=== PATIENT | female | born 1975 | race Caucasian/White ===

== ENCOUNTER 2017-02-21 18:42 | Emergency (ER) | payer OTHER, SELFPAY ==
[2017-02-21 20:14] VITALS: BP 112/59; PULSE 73; RESP 20; TEMP 37; O2SAT 98; BMI 42.9
--- NOTE | 2017-02-21 20:40 | HMH.EDUTC ---
[facility] [place] Disposition Clinical Impression: Viral upper respiratory illness Disposition: Home, Self-Care Condition on Discharge: Good Instructions: DI for Viral Upper Respiratory Infection -- Adult Additional Instructions: * Monitor Temp. Tylenol and/or Ibuprofen as needed. ER if fever is no less than 101 despite alternating Tylenol and Ibuprofen * Encourage fluids, water, Gatorade, powerade, pedialyte if infant/toddler/or child * Warm salt water gargles for throat irritation *Warm fluids *Sore throat lozenges *Sleep elevated *humidifier or vaporizer Lots of rest Increase fluids, water, Gatorade, powerade *Your throat swab was sent to lab for culture. Those results area typically sent to your primary care physician. Be sure to follow up in 2-3 days if no improvement so they can review those results and treat if necessary If you dont have primary care I recommend you get one, but in the mean time you will have to return to a walk in clinic Follow up IMMEDIATELY for new or worsening of symptoms OR no noticeable improvement over the next 48-72 hours. 911 immediately for any life threatening symptoms such as chest pain or difficulty breathing Time of Disposition: 20:49 Medical Decision Making Vital Signs: 02/21/17 20:14 Temperature 98.6 F Temperature Source Temporal Artery Scan Pulse Rate [Right Radial] 73 Respiratory Rate 20 Blood Pressure [Right Arm] 112/59 Blood Pressure Mean [Right Arm] 76 Blood Pressure Source [Right Arm] Automatic Cuff Blood Pressure Position [Right Arm] Sitting 02 Sat by Pulse Oximetry 98 Oxygen Delivery Method Room Air - Bladimir Inquiry Pt receiving controlled substance: No Bladimir was queried for this patient: No [facility] [place] HPI - General Stated complaint: Aches, Cough, Congestion Mode of Arrival: Ambulatory Source of Information: Patient Limitations: No Limitations Description of Symptoms (Recalled from Triage Doc. by RN): HEADACHE, COUGH, AND CONGESTION HEENT Symptoms (Recalled from RN notes): Yes (HEADACHE, CONGESTION) Resp Symptoms (Recalled from RN notes): Yes (COUGH) Skin Symptoms (Recalled from RN notes): No MS Symptoms (Recalled from RN notes): No Functional Status (Recalled from RN notes): NA - History of Present Illness Provider Complaint: Patient state that she has been having flu like symptoms States that she was worried that she may have the flu Onset (ago): day(s) (1) Severity: mild Severity scale (1-10): 3 Relieving factors: none Exacerbating factors: none Associated symptoms: fever/chills Treatments prior to arrival: none, NSAID, cold therapy - Related Data Allergies Allergy/AdvReac Type Severity Reaction Status Date / Time No Known Allergies Allergy Verified 02/21/17 20:18 - Worker's Comp Is this a Worker's Comp case?: No Is this an [facility] Worker's Comp?: No [facility] History Medical History: Denies:: Cancer, Diabetes Mellitus Type 1, Diabetes Mellitus Type 2, MRSA Amputation: No Fractures: No - *Social History Smoking Status: Never smoker Alcohol Intake: never - Psychiatric History Expresses thoughts of harming self/others: None Suicide Plan Description: No Plan - Constitutional Reports chills, Reports fever(s) - Respiratory Reports cough Physical Exam - General General appearance: alert, in no apparent distress - Expanded ENT Exam Comment: Throat red, irritated - Respiratory Respiratory exam: Present: normal lung sounds bilaterally. Absent: respiratory distress - Cardiovascular Cardiovascular exam: Present: regular rate, normal rhythm. Absent: JVD - Neurological Exam Neurological exam: Present: alert, oriented X3 - Skin Skin exam: Present: warm, dry, intact, normal color
--- NOTE | 2017-02-21 20:44 | ED_ITS ---
[facility] [place] Clinical Impression: Viral upper respiratory illness Disposition: Home, Self-Care Condition on Discharge: Good Instructions: DI for Viral Upper Respiratory Infection -- Adult Additional Instructions: * Monitor Temp. Tylenol and/or Ibuprofen as needed. ER if fever is no less than 101 despite alternating Tylenol and Ibuprofen * Encourage fluids, water, Gatorade, powerade, pedialyte if infant/toddler/or child * Warm salt water gargles for throat irritation *Warm fluids *Sore throat lozenges *Sleep elevated *humidifier or vaporizer Lots of rest Increase fluids, water, Gatorade, powerade *Your throat swab was sent to lab for culture. Those results area typically sent to your primary care physician. Be sure to follow up in 2-3 days if no improvement so they can review those results and treat if necessary If you don? t have primary care I recommend you get one, but in the mean time you will have to return to a walk in clinic Follow up IMMEDIATELY for new or worsening of symptoms OR no noticeable improvement over the next 48-72 hours. 911 immediately for any life threatening symptoms such as chest pain or difficulty breathing Time of Disposition: 20:49 Medical Decision Making Vital Signs: 02/21/17 20:14 Temperature 98.6 F Temperature Source Temporal Artery Scan Pulse Rate [Right Radial] 73 Respiratory Rate 20 Blood Pressure [Right Arm] 112/59 Blood Pressure Mean [Right Arm] 76 Blood Pressure Source [Right Arm] Automatic Cuff Blood Pressure Position [Right Arm] Sitting 02 Sat by Pulse Oximetry 98 Oxygen Delivery Method Room Air - Bladimir Inquiry Pt receiving controlled substance: No Bladimir was queried for this patient: No [facility] [place] - General Stated complaint: Aches, Cough, Congestion Mode of Arrival: Ambulatory Source of Information: Patient Limitations: No Limitations Description of Symptoms (Recalled from Triage Doc. by RN): HEADACHE, COUGH, AND CONGESTION HEENT Symptoms (Recalled from RN notes): Yes (HEADACHE, CONGESTION) Resp Symptoms (Recalled from RN notes): Yes (COUGH) Skin Symptoms (Recalled from RN notes): No MS Symptoms (Recalled from RN notes): No Functional Status (Recalled from RN notes): NA - History of Present Illness Provider Complaint: Patient state that she has been having flu like symptoms States that she was worried that she may have the flu Onset (ago): day(s) (1) Severity: mild Severity scale (1-10): 3 Relieving factors: none Exacerbating factors: none Associated symptoms: fever/chills Treatments prior to arrival: none, NSAID, cold therapy - Related Data Allergies Allergy/AdvReac Type Severity Reaction Status Date / Time No Known Allergies Allergy Verified 02/21/17 20:18 - Worker's Comp Is this a Worker's Comp case?: No Is this an [facility] Worker's Comp?: No [facility] History Medical History: Denies:: Cancer, Diabetes Mellitus Type 1, Diabetes Mellitus Type 2, MRSA Amputation: No Fractures: No - *Social History Smoking Status: Never smoker Alcohol Intake: never - Psychiatric History Expresses thoughts of harming self/others: None Suicide Plan Description: No Plan - Constitutional Reports chills, Reports fever(s) - Respiratory Reports cough Physical Exam - General General appearance: alert, in no apparent distress - Expanded ENT Exam Comment: Throat red
[2017-02-21 21:25] LABS: UTC Influenza A Antigen Negative (Negative); UTC Influenza B Antigen Negative (Negative)
== END 2017-02-21 21:09 | disposition home or self-care (01) ==
PROVIDERS: Emergency Provider Nurse Practitioner; Family Provider Pediatrics
DX: J06.9 Acute upper respiratory infection, unspecified (principal)
CPT/HCPCS: 87276; 87804; 99201

== ENCOUNTER 2017-02-28 10:32 | Emergency (ER) | payer OTHER, SELFPAY ==
[2017-02-28 10:46] VITALS: BP 148/64; PULSE 78; RESP 20; TEMP 36.7; O2SAT 96; BMI 42.9
--- NOTE | 2017-02-28 10:59 | HMH.EDUTC ---
[facility] [place] Disposition Clinical Impression: Upper respiratory infection Qualifiers: URI type: unspecified URI Qualified Code(s): J06.9 - Acute upper respiratory infection, unspecified Sinusitis Qualifiers: Sinusitis location: other Chronicity: unspecified Qualified Code(s): J32.9 - Chronic sinusitis, unspecified Disposition: Home, Self-Care Condition on Discharge: Good Instructions: Sinusitis, DI for Sinusitis Additional Instructions: Stop taking Augmentin and began taking Biaxin as prescribed Return if needed Use vaporizer/humidifier to help with breathing and cough Return if needed Follow up with family doctor if needed Prescriptions: Clarithromycin [Biaxin] 500 mg PO Q12H #20 tablet Promethazine/Dextromethorphan [Promethazine-Dm Syrup] 5 ml PO Q4H PRN #200 syrup PRN Reason: Cough Referrals: Robin Roberson [Primary Care Provider] - Time of Disposition: 11:18 Medical Decision Making Vital Signs: 02/28/17 10:46 Temperature 98.1 F Temperature Source Temporal Artery Scan Pulse Rate [Right] 78 Respiratory Rate 20 Blood Pressure [Right Arm] 148/64 Blood Pressure Mean [Right Arm] 92 Blood Pressure Source [Right Arm] Automatic Cuff Blood Pressure Position [Right Arm] Sitting 02 Sat by Pulse Oximetry 96 Oxygen Delivery Method Room Air - Bladimir Inquiry Pt receiving controlled substance: No Bladimir was queried for this patient: No [facility] [place] HPI - General Stated complaint: congested,headache,earache Mode of Arrival: Ambulatory Source of Information: Patient Limitations: No Limitations Description of Symptoms (Recalled from Triage Doc. by RN): COUGH, CONGESTION EAR ACHE HEENT Symptoms (Recalled from RN notes): Yes Resp Symptoms (Recalled from RN notes): No Skin Symptoms (Recalled from RN notes): No MS Symptoms (Recalled from RN notes): No Functional Status (Recalled from RN notes): N - History of Present Illness Provider Complaint: Patient state that she was recently put on Augmentin for sinus infection, State that she has been taking it but it hasn't been helping She is still having pain and pressure feeling under left eye and feeling like her ears are full. State that she is tender to touch and has pain and pressure with palpation - Related Data Home Medications Medication Instructions Recorded Confirmed Lisinopril [Prinivil 10mg Tablet] 12.5 mg PO DAILY 02/28/17 02/28/17 Metoprolol Tartrate [Lopressor 50 mg PO BID 02/28/17 02/28/17 50mg tablet] Previous Rx's Medication Instructions Recorded Clarithromycin [Biaxin] 500 mg PO Q12H #20 tab 02/28/17 Promethazine/Dextromethorphan 5 ml PO Q4H PRN #200 syrup 02/28/17 [Promethazine-Dm Syrup] Allergies Allergy/AdvReac Type Severity Reaction Status Date / Time No Known Allergies Allergy Verified 02/21/17 20:18 - Worker's Comp Is this a Worker's Comp case?: No [facility] History I have reviewed the patient's past medical history: Yes Medical History: Denies:: Cancer, Diabetes Mellitus Type 1, Diabetes Mellitus Type 2, MRSA Amputation: No Fractures: No - *Social History Smoking Status: Never smoker Alcohol Intake: never - Psychiatric History Expresses thoughts of harming self/others: None Suicide Plan Description: No Plan ROS Obtained: Yes All systems reviewed & no additional complaints Physical Exam - General General appearance: alert, in no apparent distress - ENT ENT exam: Present: other (Throat red, irritated drainage noted) - Expanded ENT Exam Nose exam: Present: sinus tenderness, other (Tenderness noted with palpation under eyes ) Nasal speculum exam: Bilateral: purulent discharge - Respiratory Respiratory exam: Present: normal lung sounds bilaterally. Absent: respiratory distress - Cardiovascular Cardiovascular exam: Present: regular rate, normal rhythm. Absent: JVD - Neurological Exam Neurological exam: Present: alert, oriented X3
--- NOTE | 2017-02-28 11:05 | ED_ITS ---
[facility] [place] Disposition Clinical Impression: Upper respiratory infection Qualifiers: URI type: unspecified URI Qualified Code(s): J06.9 - Acute upper respiratory infection, unspecified Sinusitis Qualifiers: Sinusitis location: other Chronicity: unspecified Qualified Code(s): J32.9 - Chronic sinusitis, unspecified Disposition: Home, Self-Care Condition on Discharge: Good Instructions: Sinusitis, DI for Sinusitis Additional Instructions: Stop taking Augmentin and began taking Biaxin as prescribed Return if needed Use vaporizer/humidifier to help with breathing and cough Return if needed Follow up with family doctor if needed Prescriptions: Clarithromycin [Biaxin] 500 mg PO Q12H #20 tablet Promethazine/Dextromethorphan [Promethazine-Dm Syrup] 5 ml PO Q4H PRN #200 syrup PRN Reason: Cough Referrals: Robin Roberson [Primary Care Provider] - Time of Disposition: 11:18 Medical Decision Making Vital Signs: 02/28/17 10:46 Temperature 98.1 F Temperature Source Temporal Artery Scan Pulse Rate [Right] 78 Respiratory Rate 20 Blood Pressure [Right Arm] 148/64 Blood Pressure Mean [Right Arm] 92 Blood Pressure Source [Right Arm] Automatic Cuff Blood Pressure Position [Right Arm] Sitting 02 Sat by Pulse Oximetry 96 Oxygen Delivery Method Room Air - Bladimir Inquiry Pt receiving controlled substance: No Bladimir was queried for this patient: No [facility] [place] HPI - General Stated complaint: congested,headache,earache Mode of Arrival: Ambulatory Source of Information: Patient Limitations: No Limitations Description of Symptoms (Recalled from Triage Doc. by RN): COUGH, CONGESTION EAR ACHE HEENT Symptoms (Recalled from RN notes): Yes Resp Symptoms (Recalled from RN notes): No Skin Symptoms (Recalled from RN notes): No MS Symptoms (Recalled from RN notes): No Functional Status (Recalled from RN notes): N - History of Present Illness Provider Complaint: Patient state that she was recently put on Augmentin for sinus infection, State that she has been taking it but it hasn't been helping She is still having pain and pressure feeling under left eye and feeling like her ears are full. State that she is tender to touch and has pain and pressure with palpation - Related Data Home Medications Medication Instructions Recorded Confirmed Lisinopril [Prinivil 10mg Tablet] 12.5 mg PO DAILY 02/28/17 02/28/17 Metoprolol Tartrate [Lopressor 50 mg PO BID 02/28/17 02/28/17 50mg tablet] Previous Rx's Medication Instructions Recorded Clarithromycin [Biaxin] 500 mg PO Q12H #20 tab 02/28/17 Promethazine/Dextromethorphan 5 ml PO Q4H PRN #200 syrup 02/28/17 [Promethazine-Dm Syrup] Allergies Allergy/AdvReac Type Severity Reaction Status Date / Time No Known Allergies Allergy Verified 02/21/17 20:18 - Worker's Comp Is this a Worker's Comp case?: No [facility] History I have reviewed the patient's past medical history: Yes Medical History: Denies:: Cancer, Diabetes Mellitus Type 1, Diabetes Mellitus Type 2, MRSA Amputation: No Fractures: No - *Social History Smoking Status: Never smoker Alcohol Intake: never - Psychiatric History Expresses thoughts of harming self/others: None Suicide Plan Description: No Plan ROS Obtained: Yes All systems reviewed & no additional complaints
== END 2017-02-28 11:30 | disposition home or self-care (01) ==
PROVIDERS: Emergency Provider Nurse Practitioner; Family Provider Pediatrics; PCP Pediatrics
DX: J06.9 Acute upper respiratory infection, unspecified (principal); J32.9 Chronic sinusitis, unspecified; I10 Essential (primary) hypertension
CPT/HCPCS: 96372; 99202

== ENCOUNTER 2017-05-05 09:28 | Emergency (ER) | payer OTHER, SELFPAY ==
[2017-05-05 09:49] VITALS: BP 151/83; PULSE 100; RESP 20; TEMP 37.1; O2SAT 97; BMI 42.9
[2017-05-05 10:02] LABS: UTC Influenza A Antigen Negative (Negative); UTC Influenza B Antigen Negative (Negative); UTC Strep Screen (Rapid) Negative (Negative)
--- NOTE | 2017-05-05 10:06 | HMH.EDUTC ---
[facility] [place] Disposition Clinical Impression: Acute bronchitis Qualifiers: Bronchitis organism: other organism Qualified Code(s): J20.8 - Acute bronchitis due to other specified organisms Disposition: Home, Self-Care Condition on Discharge: Good Instructions: DI for Acute Bronchitis Additional Instructions: * start antibiotic today. Be sure to complete entire prescription even if feeling better. * Monitor Temp. Tylenol every 4 hours as needed no more then 5 times a day or 4000mg in 24 hours and/or ibuprofen every 6 hours as needed no more then 3200mg in 24 hours (as long as your primary care doctor has told you that it is ok to take both) for fever/aches/pain. ER if fever no less than 101 despite tylenol and ibuprofen * humidifier/vaporizer/hot steamy shower * Inhaler every 4-6 hours as needed like we discussed. Should help open airways and improve cough, wheezing, shortness of breath. * Mucinex during the day for your cough and cough suppressant only at night. Be sure to drink lots of water. Insurance may not cover a prescription of mucinex. Might be cheaper to get 400mg tablets and take 2 tablets morning, midday and evening all with lots of water. * Tessalon Perles will not cause drowsiness but use at bedtime to help stop cough so that you can get some rest * Start steroid today. Helps with inflammation therefore, cough and wheezing. Follow directions on package. Rvwd side effects. Pt reports they have taken them before. Prescriptions: Albuterol Sulfate [Albuterol HFA Inhaler] 1 - 2 puffs IH Q4-6H PRN #1 inh PRN Reason: Shortness Of Breath Or Wheezing Benzonatate [Benzonatate 200mg Cap] 200 mg PO HS PRN #21 cap PRN Reason: Cough predniSONE [Deltasone 10mg tablet] 10 mg PO BID #10 tab Referrals: Robin Roberson [Primary Care Provider] - (Follow up IMMEDIATELY for new or worsening symptoms OR no noticeable improvement over the next 48-72 hours. 911 for difficulty breathing.) Time of Disposition: 10:44 Medical Decision Making - Bladimir Inquiry Pt receiving controlled substance: No Vital Signs: 05/05/17 09:49 Temperature 98.8 F Temperature Source Temporal Artery Scan Pulse Rate [Left Radial] 100 H Respiratory Rate 20 Blood Pressure [Right Arm] 151/83 Blood Pressure Mean [Right Arm] 105 Blood Pressure Source [Right Arm] Automatic Cuff Blood Pressure Position [Right Arm] Sitting 02 Sat by Pulse Oximetry 97 Oxygen Delivery Method Room Air - Lab Data Lab results reviewed: Yes: I reviewed the patient's lab results. Lab Results 05/05/17 09:57: Influenza Type A Ag Negative, Influenza Type B Ag Negative, Strep Scn Rapid Clinic Negative Orders (Tests/Meds): ORDERS Category Date Time Status Strep Screen Confirmation Stat Micro 05/05/17 09:57 Received - Radiology Data #1 Image(s): Chest Image Reviewed: Yes I have reviewed radiologist's interpretation, Yes I reviewed the patient's radiology image w/the ED provider Suzanna w/ Dr. Prado, possible RLL pneumonia Negative CXR per radiologist [facility] [place] HPI - General Stated complaint: Cough Congestion Time Seen by Provider: 05/05/17 09:45 Mode of Arrival: Family Vehicle Source of Information: Patient Limitations: No Limitations Description of Symptoms (Recalled from Triage Doc. by RN): PT C/O COUGH,TIGHT CHEST WITH BURNING WHEN COUGHING,CONGESTION, HEAD PAIN, LOW GRADE FEVER, BODY ACHES. HEENT Symptoms (Recalled from RN notes): Yes (HEAD PAIN,CONGESTION) Resp Symptoms (Recalled from RN notes): Yes (COUGH,BURNING, CHEST TIGHTNESS) Skin Symptoms (Recalled from RN notes): No MS Symptoms (Recalled from RN notes): No Functional Status (Recalled from RN notes): NA - History of Present Illness Provider Complaint: c/o productive cough, chest tightness, chest burning, headache, bodyaches, chills, low grade fever. Started w/ a head cold approx 5-6 days ago. Feels like it moved into her chest 2-3 days ago. Mucinex, advil and benadryl helping but wears off quickly . N
--- NOTE | 2017-05-05 10:07 | XR_ITS ---
XR chest 2V INDICATION: Productive cough COMPARISON: PA and lateral chest 12/13/2016 FINDINGS: The cardiovascular structures are unremarkable. No mediastinal shift or hilar mass is evident. The lungs are well expanded and clear bilaterally. The costophrenic sulci are sharp. No significant bony anomalies are apparent. IMPRESSION: Negative chest.
--- NOTE | 2017-05-05 10:11 | ED_ITS ---
[facility] [place] Clinical Impression: Acute bronchitis Qualifiers: Bronchitis organism: other organism Qualified Code(s): J20.8 - Acute bronchitis due to other specified organisms Disposition: Home, Self-Care Condition on Discharge: Good Instructions: DI for Acute Bronchitis Additional Instructions: * start antibiotic today. Be sure to complete entire prescription even if feeling better. * Monitor Temp. Tylenol every 4 hours as needed no more then 5 times a day or 4000mg in 24 hours and/or ibuprofen every 6 hours as needed no more then 3200mg in 24 hours (as long as your primary care doctor has told you that it is ok to take both) for fever/aches/pain. ER if fever no less than 101 despite tylenol and ibuprofen * humidifier/vaporizer/hot steamy shower * Inhaler every 4-6 hours as needed like we discussed. Should help open airways and improve cough, wheezing, shortness of breath. * Mucinex during the day for your cough and cough suppressant only at night. Be sure to drink lots of water. Insurance may not cover a prescription of mucinex. Might be cheaper to get 400mg tablets and take 2 tablets morning, midday and evening all with lots of water. * Tessalon Perles will not cause drowsiness but use at bedtime to help stop cough so that you can get some rest * Start steroid today. Helps with inflammation therefore, cough and wheezing. Follow directions on package. Rvwd side effects. Pt reports they have taken them before. Prescriptions: Albuterol Sulfate [Albuterol HFA Inhaler] 1 - 2 puffs IH Q4-6H PRN #1 inh PRN Reason: Shortness Of Breath Or Wheezing Benzonatate [Benzonatate 200mg Cap] 200 mg PO HS PRN #21 cap PRN Reason: Cough predniSONE [Deltasone 10mg tablet] 10 mg PO BID #10 tab Referrals: Robin Roberson [Primary Care Provider] - (Follow up IMMEDIATELY for new or worsening symptoms OR no noticeable improvement over the next 48-72 hours. 911 for difficulty breathing.) Time of Disposition: 10:44 Medical Decision Making - Bladimir Inquiry Pt receiving controlled substance: No Vital Signs: 05/05/17 09:49 Temperature 98.8 F Temperature Source Temporal Artery Scan Pulse Rate [Left Radial] 100 H Respiratory Rate 20 Blood Pressure [Right Arm] 151/83 Blood Pressure Mean [Right Arm] 105 Blood Pressure Source [Right Arm] Automatic Cuff Blood Pressure Position [Right Arm] Sitting 02 Sat by Pulse Oximetry 97 Oxygen Delivery Method Room Air - Lab Data Lab results reviewed: Yes: I reviewed the patient's lab results. Lab Results 05/05/17 09:57: Influenza Type A Ag Negative, Influenza Type B Ag Negative, Strep Scn Rapid Clinic Negative Orders (Tests/Meds): ORDERS Category Date Time Status Strep Screen Confirmation Stat Micro 05/05/17 09:57 Received - Radiology Data #1 Image(s): Chest Image Reviewed: Yes I have reviewed radiologist's interpretation, Yes I reviewed the patient's radiology image w/the ED provider Suzanna w/ Dr. Prdao, possible RLL pneumonia Negative CXR per radiologist [facility] [place] - General Stated complaint: Cough Congestion Time Seen by Provider: 05/05/17 09:45 Mode of Arrival: Family Vehicle Source of Information: Patient Limitations: No Limitations Description of Symptoms (Recalled from Triage Doc. by RN): PT C/O COUGH,TIGHT CHEST WITH BURNING WHEN COUGHING,CONGESTION, HEAD PAIN, LOW GRADE FEVER, BODY ACHES. HEENT Symptoms (Recalled from RN notes): Yes (HEAD PAIN,CONGESTION)
[2017-05-05 10:52] VITALS: BP 148/79; PULSE 83; RESP 18; TEMP 37; O2SAT 98
== END 2017-05-05 10:54 | disposition home or self-care (01) ==
PROVIDERS: Emergency Provider Nurse Practitioner Family; Family Provider Pediatrics; PCP Pediatrics
DX: J20.8 Acute bronchitis due to other specified organisms (principal); I10 Essential (primary) hypertension; F41.9 Anxiety disorder, unspecified
CPT/HCPCS: 71046; 87804; 87880; 99202

== ENCOUNTER → 2017-10-31 10:04 | Outpatient (CLI) | payer OTHER, SELFPAY ==
--- NOTE | 2017-10-31 10:06 | XR_ITS ---
XR foot wt bearing LT 3V HISTORY: ITS.REASON: Foot Pain ORDERING PHYSICIAN: Cristina Noel DPM PATIENT AGE: 42 years COMPARISON: None FINDINGS: No fracture or dislocation. No lytic or blastic change. There is normal mineralization.. The joint spaces are well-preserved. No significant degenerative/arthritic changes. No erosive changes evident. There are postsurgical changes with 2 small screws in the region of the insular aspect of the navicular bone. There is a small calcaneal spur. There is normal alignment. IMPRESSION: No acute finding. Postsurgical changes of the navicular
--- NOTE | 2017-10-31 10:06 | XR_ITS ---
XR foot wt bearing RT 3V HISTORY: ITS.REASON: pain ORDERING PHYSICIAN: Cristina Noel DPM PATIENT AGE: 42 years COMPARISON: 03/27/2014 FINDINGS: There remains hypertrophic change along the medial aspect of the navicular similar to the previous exam which could be due to an old fracture. No acute fracture or dislocation. Normal alignment. IMPRESSION: Overall no change hypertrophic change of the medial aspect of the navicular
== END ==
PROVIDERS: PCP Pediatrics; Visit Provider Podiatrist
DX: M79.673 Pain in unspecified foot (principal)
CPT/HCPCS: 73630

== ENCOUNTER → 2017-12-12 09:45 | Outpatient (POV) | payer OTHER, SELFPAY | PROVIDERS: Family Provider Pediatrics; PCP Pediatrics; Visit Provider Dermatology | DX: Z00.00 Encounter for general adult medical examination without abnormal findings (principal) ==

== ENCOUNTER → 2019-03-12 10:40 | Outpatient (POV) | payer OTHER, SELFPAY | PROVIDERS: Visit Provider Dermatology | DX: Z00.00 Encounter for general adult medical examination without abnormal findings (principal) ==

== ENCOUNTER → 2019-04-11 08:21 | Outpatient (CLI) | payer OTHER, SELFPAY ==
--- NOTE | 2019-04-11 08:23 | MM_ITS ---
PROCEDURE: MM DIG SCREENING MAMM BI W/CAD CLINICAL INDICATION: SCREENING COMPARISON: No exams were available for comparison TECHNIQUE: Standard CC and MLO images and 3D Tomosynthesis was obtained. R2 CAD reviewed. FINDINGS: The breasts are of average density. There are 3 probably benign clustered microcalcifications in the deep left breast just superior to the nipple line. Six month follow-up exam is recommended. Benign appearing calcifications are seen otherwise in both breast. There is no discrete mass or suspicious clustered microcalcification to suggest malignancy. IMPRESSION: BI-RAD Category: 3 Probably Benign Finding Short Term Follow-up FOLLOW-UP: 6M 6Month Follow-up (A letter has been sent to the patient regarding results of the study.) Dictated by: Keenan Young 04/11/2019 18:26 Electronically signed by Keenan Young in [facility] 04/11/2019 18:26
== END ==
PROVIDERS: PCP Nurse Practitioner Family; Visit Provider Nurse Practitioner Family
DX: Z12.31 Encounter for screening mammogram for malignant neoplasm of breast (principal)
CPT/HCPCS: 77063; 77067

== ENCOUNTER → 2019-05-27 09:57 | Outpatient (CLI) | payer OTHER, SELFPAY ==
[2019-05-27 10:25] LABS: Basophils # 0.1 K/mm3 (0-0.2); Basophils % 0.6 % (0.1-2.0); Eosinophils # 0.2 K/mm3 (0.0-0.4); Eosinophils % 2.4 % (0.1-12.0); Hemoglobin 12.7 g/dL (12.2-16.2); Lymphocytes # 3.4 K/mm3 (0.7-4.5); Lymphocytes % 32.8 % (10-50); Mean Corpuscular HGB Conc 31.7 g/dL (31.8-35.4); Mean Corpuscular Hemoglobin 25.1 pg (27.0-31.2); Mean Platelet Volume 7.3 fl (7.4-10.4); Monocytes # 0.5 K/mm3 (0.1-1.0); Monocytes % 4.4 % (1.7-9.3); Neutrophils # 6.2 K/mm3 (1.8-7.8); Neutrophils % 59.9 % (37.0-80.0); Platelet Count 344 K/mm3 (142-424); Red Blood Count 5.06 M/mm3 (4.20-5.40); Red Cell Distribution Width 14.8 % (11.5-17.5); White Blood Count 10.3 K/mm3 (4.8-10.8)
[2019-05-27 11:18] LABS: Chloride 100 mmol/L (98-107); Potassium 4.5 mmoL/L (3.5-5.1); Sodium 137 mmol/L (136-145)
[2019-05-27 11:20] LABS: Alanine Aminotransferase 23 U/L (12-78); Anion Gap 17.5 mEq/L (5-15); Aspartate Amino Transferase 25 U/L (14-36); Blood Urea Nitrogen 9 mg/dl (7-17); Carbon Dioxide 24 mmol/L (22.0-30.0); Estimated Glomerular Filt Rate 134 ml/min (>60); GFR (African American) 162 ML/MIN (>60)
[2019-05-27 11:21] LABS: Albumin Level 4.4 g/dl (3.5-5.0); Albumin/Globulin Ratio 1.5 (1.1-1.8); Alkaline Phosphatase 79 U/L (38-126); Bilirubin,Total 0.4 mg/dl (0.2-1.3); Calcium 9.6 mg/dl (8.4-10.2); Cholesterol 248 mg/dl (140-200); Globulin 2.9 g/dL (1.3-3.2); Glucose 154 mg/dl (74-100); HDL Cholesterol 50 mg/dl (40-60); Total Protein,Serum 7.3 g/dl (6.3-8.2); Triglycerides 204 mg/dl (30-150); VLDL Cholesterol 41 mg/dL (0-40)
[2019-05-27 11:32] LABS: Direct LDL Cholesterol 183.17 mg/dL (100-129)
[2019-05-27 11:51] LABS: Thyroid Stimulating Hormone 1.81 uIU/mL (0.465-4.68)
[2019-05-27 14:25] LABS: Hemoglobin A1C 6.6 % (4.0-6.0)
[2019-05-28 14:15] LABS: Vitamin B12 272 pg/mL (232-1245)
== END ==
PROVIDERS: Visit Provider Nurse Practitioner Family
DX: Z00.00 Encounter for general adult medical examination without abnormal findings (principal); I10 Essential (primary) hypertension; E78.5 Hyperlipidemia, unspecified; R73.9 Hyperglycemia, unspecified; R53.81 Other malaise
CPT/HCPCS: 36415; 80053; 80061; 82607; 83036; 84443; 85025

== ENCOUNTER → 2019-11-15 08:31 | Outpatient (CLI) | payer OTHER, SELFPAY ==
[2019-11-15 09:31] LABS: Chloride 109 mmol/L (98-107); Potassium 4.3 mmoL/L (3.5-5.1); Sodium 139 mmol/L (136-145)
[2019-11-15 09:33] LABS: Alanine Aminotransferase 21 U/L (12-78); Aspartate Amino Transferase 27 U/L (14-36); Blood Urea Nitrogen 13 mg/dl (7-17); Estimated Glomerular Filt Rate 108 ml/min (>60); GFR (African American) 131 ML/MIN (>60)
[2019-11-15 09:34] LABS: Albumin Level 3.8 g/dl (3.5-5.0); Albumin/Globulin Ratio 1.5 (1.1-1.8); Alkaline Phosphatase 67 U/L (38-126); Anion Gap 14.3 mEq/L (5-15); Bilirubin,Total 0.4 mg/dl (0.2-1.3); Calcium 8.8 mg/dl (8.4-10.2); Carbon Dioxide 20 mmol/L (22.0-30.0); Chol/HDL Ratio 4.9 (1-3.5); Cholesterol 206 mg/dl (140-200); Globulin 2.6 g/dL (1.3-3.2); Glucose 168 mg/dl (74-100); HDL Cholesterol 42 mg/dl (40-60); Total Protein,Serum 6.4 g/dl (6.3-8.2); Triglycerides 226 mg/dl (30-150); VLDL Cholesterol 45 mg/dL (0-40)
[2019-11-15 09:45] LABS: Direct LDL Cholesterol 148.22 mg/dL (100-129)
[2019-11-15 18:58] LABS: Hemoglobin A1C 6.9 % (4.0-6.0)
== END ==
PROVIDERS: Visit Provider Nurse Practitioner Family
DX: R73.03 Prediabetes (principal); E78.5 Hyperlipidemia, unspecified
CPT/HCPCS: 36415; 80053; 80061; 83036

== ENCOUNTER → 2019-12-04 13:06 | Outpatient (CLI) | payer OTHER, SELFPAY ==
--- NOTE | 2019-12-04 13:13 | MM_ITS ---
PROCEDURE: MM DIG MAMM BI DX W/CAD Digital Breast Tomosynthesis Included CLINICAL INDICATION: ABN MAMM Follow-up abnormal calcifications COMPARISON: MG MM DIG SCREENING MAMM BI W/CAD from 04/11/2019 TECHNIQUE: Standard CC and MLO images and 3D Tomosynthesis was obtained. R2 CAD reviewed. FINDINGS: Mostly fatty replaced fibroglandular tissue. No malignant appearing mass or malignant-appearing microcalcification evident. Small cluster of calcifications in the superior left breast previously described is unchanged. Other small cluster calcifications are also noted unchanged. IMPRESSION: BI-RAD Category: 2 Benign Finding(s) FOLLOW-UP: 1YR 1 Year Follow-up (A letter has been sent to the patient regarding results of the study.) Dictated by: Garrett Blandon MD 12/09/2019 11:49 Garrett Blandon MD in [facility] 12/09/2019 11:49
== END ==
PROVIDERS: PCP Nurse Practitioner Family; Visit Provider Nurse Practitioner Family
DX: R92.8 Other abnormal and inconclusive findings on diagnostic imaging of breast (principal)
CPT/HCPCS: 77062; 77066; G0279

== ENCOUNTER → 2019-12-24 13:59 | Outpatient (CLI) | payer OTHER, SELFPAY ==
--- NOTE | 2019-12-24 14:05 | XR_ITS ---
PROCEDURE: XR HIP RT 2-3V W/PELVIS CLINICAL INDICATION: RT HIP PAIN COMPARISON: No exams were available for comparison FINDINGS: No fracture or dislocation is evident. No significant degenerative change other than mild spurring of the roof of the acetabulum. No lytic or blastic change. Unremarkable soft tissues. The SI joints and symphysis pubis appear grossly normal. IMPRESSION: No acute findings. Dictated by: Dr. Christopher Bain MD 12/24/2019 14:25 Dr. Christopher Bain MD in [facility] 12/24/2019 14:25
== END ==
PROVIDERS: PCP Nurse Practitioner Family; Visit Provider Nurse Practitioner Family
DX: M25.551 Pain in right hip (principal)
CPT/HCPCS: 73502

== ENCOUNTER 2020-02-12 14:00 | Outpatient (RCR) | payer OTHER, SELFPAY ==
--- NOTE | 2020-01-01 11:07 | HMH.PTOPEV ---
PT Outpatient Evaluation Rehab PT Outpatient Evaluation Start: 01/01/20 10:49 Freq: Status: Active Protocol: Document 01/01/20 10:50 YESSI (Rec: 01/01/20 11:06 MILADYSCARY [id number]) Electronically Signed By Willy To, PT 01/01/20 10:50 Outpatient Therapy Subjective History Subjective History Patient is a 44 year old female presenting to outpatient PT with reports of chronic R posterior hip/thigh pain of insidious onset starting approximately 3 months ago. Pain is elevated with prolonged sitting and decreased with standing/ walking. Pain is specific to the R proximal medial hamstring insertions. Most recent imaging indicate mild spurring of the roof of the acetabulum. Comorbidities include hx of multiple C- sections and HTN (controlled). Chief Complaint Pain,Stiff Symptom Type Stabbing Symptoms Relieved By Heat,Ice,OTC Meds,Activity Prior Functional Limitations None Current Functional Limitations Driving,Sitting Symptom Description Constant but Variable Level of pain today (0-10) 3 Pain scale - at its best (0-10) 1 Pain scale - at its worst (0-10) 7 Hip/Knee Eval Gait Observation General Gait Pattern Observation No Deviations/Normal Assistive Device Assistive Devices None / NA Palpation Tenderness right Knee Palpation Overall Comment Proximal medial HS attachment 3/4 Hip Palpation Findings Tenderness MMT Hip Flexion Strength Grade 4 Good Hip Abduction Strength Grade 4 Good Hip Adduction Strength Grade 4 Good Hip External Rotation Strength Grade 4- Good- Hip Internal Rotation Strength Grade 4- Good- Knee Extension Strength Grade 4 Good Knee Flexion Strength Grade 4- Good- ROM bilateral Hip ROM Reason Not Measured Within Functional Limits Knee ROM Reason Not Measured Within Functional Limits Special Tests Hip Julio César Test Positive Right Hip Piriformis Test Positive Right Sciatic Nerve Tension Test Positive Right Ronaldo Test Positive Outpatient Therapy Assessment Impairments Problems/Impairmments Palpation Tenderness,Impaired Range of Motion,Impaired Strength,Impaired Sitting, Impaired Driving,Impai
== END 2020-02-12 14:05 | disposition home or self-care (01) ==
LOC: PT 14:00
PROVIDERS: PCP Nurse Practitioner Family; Visit Provider Internal Medicine Adolescent Medicine
DX: M25.551 Pain in right hip (principal)
CPT/HCPCS: 20561; 97010; 97014; 97035; 97110; 97140; 97163; G0283

== ENCOUNTER → 2020-04-07 15:23 | Outpatient (CLI) | payer OTHER, SELFPAY | PROVIDERS: PCP Nurse Practitioner Family; Visit Provider Nurse Practitioner Family | DX: G47.30 Sleep apnea, unspecified (principal); R06.83 Snoring; G47.33 Obstructive sleep apnea (adult) (pediatric) | CPT/HCPCS: 95806 ==

== ENCOUNTER → 2020-04-22 17:05 | Outpatient (CLI) | payer OTHER, SELFPAY ==
[2020-04-22 18:28] LABS: Ferritin 6.06 ng/ml (6.24-137)
== END ==
PROVIDERS: Visit Provider Specialist
DX: E83.10 Disorder of iron metabolism, unspecified (principal)
CPT/HCPCS: 36415; 82728

== ENCOUNTER → 2020-05-01 15:19 | Outpatient (CLI) | payer OTHER, SELFPAY ==
[2020-05-01 15:31] LABS: Basophils # 0.1 K/mm3 (0-0.2); Eosinophils # 0.3 K/mm3 (0.0-0.4); Eosinophils % 2.4 % (0.1-12.0); Hematocrit 41.4 % (37.0-47.0); Hemoglobin 12.7 g/dL (12.2-16.2); Lymphocytes # 5.2 K/mm3 (0.7-4.5); Lymphocytes % 39.4 % (10-50); Mean Corpuscular HGB Conc 30.8 g/dL (31.8-35.4); Mean Corpuscular Volume 81.4 fl (81-99); Mean Platelet Volume 6.8 fl (7.4-10.4); Monocytes # 0.5 K/mm3 (0.1-1.0); Monocytes % 3.7 % (1.7-9.3); Neutrophils % 53.4 % (37.0-80.0); Platelet Count 329 K/mm3 (142-424); Red Blood Count 5.09 M/mm3 (4.20-5.40); Red Cell Distribution Width 15.8 % (11.5-17.5); White Blood Count 13.2 K/mm3 (4.8-10.8)
[2020-05-01 16:00] LABS: Iron 44 ug/dL (37-170)
[2020-05-01 16:10] LABS: Total Iron Binding Capacity 448 ug/dL (265-497)
== END ==
PROVIDERS: Visit Provider Nurse Practitioner Family
DX: R79.0 Abnormal level of blood mineral (principal)
CPT/HCPCS: 36415; 83540; 83550; 85025

== ENCOUNTER 2020-06-06 09:19 | Emergency (ER) | payer OTHER, SELFPAY ==
[2020-06-06 09:25] VITALS: BP 143/89; PULSE 67; RESP 20; TEMP 37; O2SAT 97; BMI 41.4
--- NOTE | 2020-06-06 10:07 | HMH.EDUTC ---
[facility] [place] Disposition Clinical Impression: Strep throat exposure UTI (urinary tract infection) Qualifiers: Urinary tract infection type: acute cystitis Hematuria presence: with hematuria Qualified Code(s): N30.01 - Acute cystitis with hematuria Disposition: Home, Self-Care Condition on Discharge: Good Instructions: Urinary Tract Infection, DI for Strep Throat Additional Instructions: Increase fluids, water and not soda or tea. Can drink cranberry juice or cranberry extract. White front to back Wear cotton underwear Empty bladder after intercourse Start antibiotics immediately and make sure you take the full course although you may start to see improvement over the next 48 hours. You can eat yogurt or take probiotics to decrease diarrhea or yeast infection caused by the antibiotic Be sure to follow-up anytime for new or worsening symptoms in 48 hours for wound urine culture results be sure to let you PCP no recent urine for culture so they can request records and ensure that you have appropriate antibiotic if you are not getting better or getting worse. If symptoms worsen or do not improve return or be seen in the ER. Follow-up with primary care this week. Start antibiotics today be sure to take it as ordered with the full length of time although you should start feeling better in 24-48 hours. Change toothbrush and toothpaste 24-48 hours after starting antibiotics Tylenol or Motrin as needed for fever or pain Encourage fluids, water, Gatorade, Powerade, try cold fluids, popsicles, ice cream will make it feel better You are contagious for 24 hours. Avoid kissing anyone, no eating or drinking after anyone. You are contagious. Follow-up the ER for new or worsening symptoms or no noticeable improvement over the next 24-48 hours. Follow-up with PCP this week. self isolate until test results are known to be neg Prescriptions: cephALEXin [Cephalexin 500mg Tab] 500 mg PO BID 7 Days #14 tab Prescription Printed predniSONE [Prednisone 20mg Tab] 20 mg PO BID #10 tab Prescription Printed Referrals: Abril Otoole APRN [Primary Care Provider] - Time of Disposition: 10:12 Medical Decision Making - Bladimir Inquiry Pt receiving controlled substance: No Vital Signs: 06/06/20 09:25 Temperature 98.6 F Temperature Source Oral Pulse Rate [Right Brachial] 67 Respiratory Rate 20 Blood Pressure [Right Arm] 143/89 H Blood Pressure Mean [Right Arm] 107 Blood Pressure Source [Right Arm] Automatic Cuff Blood Pressure Position [Right Arm] Sitting 02 Sat by Pulse Oximetry 97 Oxygen Delivery Method Room Air Orders (Tests/Meds): ORDERS Category Date Time Status Covid-19 Nasal PCR ([facility]) Routine Lab 06/06/20 09:58 Ordered [facility] [place] HPI - General Chief complaint: Urgent Treatment Center Stated complaint: congestion, possible uti Time Seen by Provider: 06/06/20 10:07 Mode of Arrival: Ambulatory Source of Information: Patient Limitations: No Limitations Description of Symptoms (Recalled from Triage Doc. by RN): PATIENT C/O PELVIC PAIN AND PAIN WITH URINATION SINCE YESTERDAY. ALSO C/O CONGESTION, LOSS OF VOICE, HEADACHE, AND SORE THROAT HEENT Symptoms (Recalled from RN notes): Yes Resp Symptoms (Recalled from RN notes): No Skin Symptoms (Recalled from RN notes): No MS Symptoms (Recalled from RN notes): No Functional Status (Recalled from RN notes): WNL - History of Present Illness Provider Complaint: 44 yr old female presents with c/o pelvic pain, pain with urinating,congestion,loss of voice, congestion, and sore throat since yesterday. son pos for strep. - Related Data Home Medications Medication Instructions Recorded Confirmed lisinopril 10 1 tab PO DAILY 04/22/20 06/06/20 mg-hydrochlorothiazide 12.5 mg tablet metformin 1,000 mg tablet 1,000 mg PO BID tab 04/22/20 06/06/20 metoprolol tartrate 50 mg tablet 25 mg PO BID tab 04/22/20 06/06/20 Previous Rx's Medication Instructions Recorded Sulyi
[2020-06-06 10:08] LABS: Apearance,Urine Clear (Clear); Bilirubin,Urine Negative (Negative); Blood, Urine 1+ (Negative); Color,Urine Yellow (Yellow); Glucose,Urine (UA) Negative (Negative); Ketones,Urine Negative (Negative); Protein,Urine Negative (Negative); UTC Leukocyte Esterase,Urine 1+ (Negative); UTC Nitrate,Urine Negative (Negative); Urobilinogen,Urine 0.2 EU/dl (0.2)
[2020-06-06 10:09] LABS: UTC Strep Screen (Rapid) Negative (Negative)
[2020-06-06 10:22] VITALS: BP 143/89; PULSE 67; RESP 20; TEMP 37; O2SAT 97
== END 2020-06-06 10:25 | disposition home or self-care (01) ==
PROVIDERS: Emergency Provider Nurse Practitioner Family; PCP Nurse Practitioner Family
DX: N30.01 Acute cystitis with hematuria (principal); B96.20 Unspecified Escherichia coli [E. coli] as the cause of diseases classified elsewhere; J02.9 Acute pharyngitis, unspecified; Z20.822 Contact with and (suspected) exposure to COVID-19
CPT/HCPCS: 81003; 87086; 87088; 87186; 87880; 99202; G0463; U0003

== ENCOUNTER → 2020-08-10 14:19 | Outpatient (CLI) | payer OTHER, SELFPAY ==
[2020-08-10 15:00] LABS: Basophils # 0.1 K/mm3 (0-0.2); Basophils % 0.9 % (0.1-2.0); Eosinophils # 0.4 K/mm3 (0.0-0.4); Eosinophils % 2.9 % (0.1-12.0); Hematocrit 38.5 % (37.0-47.0); Hemoglobin 13.2 g/dL (12.2-16.2); Lymphocytes # 5.3 K/mm3 (0.7-4.5); Lymphocytes % 43.3 % (10-50); Mean Corpuscular HGB Conc 34.3 g/dL (31.8-35.4); Mean Corpuscular Hemoglobin 27.6 pg (27.0-31.2); Mean Corpuscular Volume 80.5 fl (81-99); Monocytes # 0.5 K/mm3 (0.1-1.0); Monocytes % 4.3 % (1.7-9.3); Neutrophils % 48.6 % (37.0-80.0); Platelet Count 324 K/mm3 (142-424); Red Blood Count 4.78 M/mm3 (4.20-5.40); White Blood Count 12.3 K/mm3 (4.8-10.8)
[2020-08-10 15:12] LABS: Iron 76 ug/dL (37-170)
[2020-08-10 15:23] LABS: Total Iron Binding Capacity 368 ug/dL (265-497)
== END ==
PROVIDERS: Visit Provider Nurse Practitioner Family
DX: D50.9 Iron deficiency anemia, unspecified (principal); G25.81 Restless legs syndrome
CPT/HCPCS: 36415; 82728; 83540; 83550; 85025

== ENCOUNTER → 2020-11-10 16:49 | Outpatient (CLI) | payer OTHER, SELFPAY | PROVIDERS: PCP Nurse Practitioner Family; Visit Provider Nurse Practitioner | DX: Z20.822 Contact with and (suspected) exposure to COVID-19 (principal) | CPT/HCPCS: C9803; U0003; U0005 ==

== ENCOUNTER → 2021-02-23 17:19 | Outpatient (CLI) | payer OTHER, SELFPAY | PROVIDERS: PCP Family Medicine Geriatric Medicine; Visit Provider Nurse Practitioner | DX: Z20.822 Contact with and (suspected) exposure to COVID-19 (principal) | CPT/HCPCS: C9803; U0003; U0005 ==

== ENCOUNTER 2022-06-23 08:56 | Day surgery (SDC) | payer OTHER, SELFPAY ==
[2022-06-21 17:03] VITALS: BMI 33.6
[2022-06-23] VITALS (8 sets, daily range): BP systolic 101–137; BP diastolic 58–90; PULSE 76–88; RESP 14–17; TEMP 36.6–36.9; O2SAT 93–100
[2022-06-23 09:39] LABS: POC Glucose,Bedside 91 (70-110)
[2022-06-23 09:40] LABS: Urine Pregnancy, HCG Qual. Negative (Negative)
--- NOTE | 2022-06-23 10:19 | HMH.SCOPE ---
Procedure: Date: 06/23/22 Patient Date of :: 1975 Procedure Performed:: Screening colonoscopy Indications:: Screening for colorectal cancer Performing Provider:: Eze Niño MD Referring Provider:: Peggy Santana APRN Sedation:: Propofol Procedure:: After placing the patient in the left lateral decubitus position, the colonoscopy was gently inserted into the rectum and under direct visualization advanced to the cecum which was identified by transillumination in the right lower quadrant, identification of the ileocecal valve, appendiceal orifice, and cecal strap. Color, texture, mucosa, and anatomy of the colon were carefully examined with the scope. Findings:: Anal canal: normal Rectum: normal Sigmoid colon: normal without polyps or inflammatory changes, few scattered diverticulti Descending colon: normal without polyps or inflammatory changes Splenic flexure: normal Transverse colon: normal without polyps or inflammatory changes Hepatic flexure: normal Ascending colon: normal without polyps or inflammatory changes Cecum: normal Terminal ileum: not visualized Impression: Few scattered sigmoid diverticuli, otherwise normal colonoscopy Recommendations:: Follow up examination in about TEN years or so, sooner if clinically indicated. Complications:: None Estimated blood obtained (mL): 0
== END 2022-06-23 11:10 | disposition home or self-care (01) ==
PROVIDERS: PCP Family Medicine Geriatric Medicine; Visit Provider Internal Medicine Gastroenterology
PROC: 0DJD8ZZ Inspection of Lower Intestinal Tract, Via Natural or Artificial Opening Endoscopic (ICD-10-PCS; CPT 45378; principal; 2022-06-23 10:00)
DX: Z12.11 Encounter for screening for malignant neoplasm of colon (principal); Z79.899 Other long term (current) drug therapy; E11.9 Type 2 diabetes mellitus without complications
CPT/HCPCS: 45378; 81025; 82962; J2704

== ENCOUNTER 2023-03-20 12:58 | Outpatient (CLI) | payer BC, SELFPAY ==
--- NOTE | 2023-03-20 13:02 | XR_ITS ---
FINAL REPORT CLINICAL HISTORY: heel pain FINDINGS: LEFT FOOT Three views of the left foot demonstrate no acute fracture or dislocation. The visualized joint spaces are normally aligned. There has been postoperative change involving the navicular bone. There is mild calcaneal spurring. The soft tissues are unremarkable. IMPRESSION: No acute bony abnormality. Reviewed, Interpreted and Dictated by Karen Bourgeois MD Transcribed by Jacquelin Cueva Authenticated and [facility]
== END 2023-03-20 23:59 ==
LOC: RAD 12:59
PROVIDERS: PCP Family Medicine Geriatric Medicine; Visit Provider Podiatrist
DX: M79.672 Pain in left foot (principal)
CPT/HCPCS: 73630

== ENCOUNTER 2024-11-21 18:44 | Emergency (ER) | payer BC, SELFPAY ==
[2024-11-21] VITALS (9 sets, daily range): BP systolic 119–151; BP diastolic 77–105; PULSE 70–91; RESP 16–20; TEMP 36.8–37.2; O2SAT 93–100
--- OUTSIDE RECORDS SUMMARY | 2024-11-21 19:00 | XMS_ITS | Clinical Summary ---
Author Organization [facility] Address [address] [place] [id number] Care Team Providers Care Swatch Folder Name Role Phone Unavailable Primary Care Provider Unavailabl e Social History Tobacco Use Types Packs/Day Years Used Date Smoking Tobacco: Never Assessed Abuse Screen Answer Date Recorded Unsafe at Home or Work/School Not on file Feels Threatened by Someone? Not on file 10/2022 Does Anyone Keep You from Co ntacting Others or Doint Things Outside the Home? Not on file 11/28/2022 Physical Sign of Abuse Present Not on file 1 Housing Stability Answer Date Recorded Current Living Arrangements Not on file 10/2022 Potentially Unsafe Housing Conditions Not on florecita e 11/28/2022 Family and Community Support Answer Venkatesh e Recorded Help with Day-to-Day Activities Not on file 11/28/2022 Lonely or Isolated Not on file 11/28/2022 Employment Answer Date Recorded Do you want help finding or keeping work or a yudy b? Not on file 11/28/2022 Disabilities Answer Date Recorded Concentrating, Remembering, or Making Decisions Difficulty Not on file 11/28/2022 Doing Errands Independently Difficulty Not on fi le 11/28/2022 Education Answer Date Recorded Help with school or training? Not on file Preferred Language Not on file 11/28/2022 Comments Unknown Sex and Gender Information Value Date Recorded Sex Assigned at Not on file Legal Sex Female 11:59 AM EDT Gender Identity Not on file Sexual Orientation Not on file Plan of Treatment Health Maintenance Due Date Last Done Comments ANNUAL PHYSICAL 1975 Annual Gynecologic Pelvic and Breast Exam 1975 HEPATITIS C SCREENING 1975 TDAP/TD VACCINES (1 - Tdap) 1993 MAMMOGRAM 2014 COLOGUARD 06/19/2019 COLON CANCER SCREENING 5 YEAR SIGMOIDOSCOPY 06/19/2019 COLONOSCOPY 06/19/2019 COLORECTAL CANCER SCREENING 06/19/2019 CT COLONOGRAPHY 06/19/2019 FECAL OCCULT BLOOD TEST 06/19/2019 FIT Testing (1 year) 06/19/2019 Pneumococcal Vaccine 50+ (1 of 1 - PCV) 2024 ZOSTER VACCINE (1 of 2) 2024 INFLUENZA VACCINE 09/20/2024
--- OUTSIDE RECORDS SUMMARY | 2024-11-21 19:00 | XMS_ITS | Patient Health Record ---
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 denies drug or al cohol use. SOCIAL HX: non smoker. denies drug or al cohol use. MENSTR FLOW: Heavy SPRINTEC 28 0.25-35 MG-MCG ORAL TABLET, Notes: Pt needs an annual appt. METOPROLOL SUCCINATE ER 200 MG ORAL TABL ET EXTENDED RELEASE 24 HOUR CLARITIN TABLET Surgical History Surgery Date(Month/Year) Breast reduction- 15 years a go, Gallbladder-02/2003, C/S x4 2002, 2005, 2007, 2011, btl 2011
--- NOTE | 2024-11-21 19:09 | CT_ITS ---
PROCEDURE INFORMATION: Exam: CT Head Without Contrast Exam date and time: 11/21/2024 8:04 PM Age: 49 years old Clinical indication: Other: Headache TECHNIQUE: Imaging protocol: Computed tomography of the head without contrast. Radiation optimization: All CT scans at this facility use at least one of these dose optimization techniques: automated exposure control; mA and/or kV adjustment per patient size (includes targeted exams where dose is matched to clinical indication); or iterative reconstruction. COMPARISON: No relevant prior studies available. FINDINGS: Brain: Normal. No hemorrhage. Unremarkable white matter. No mass effect. Cerebral ventricles: No ventriculomegaly. Paranasal sinuses: Mild mucosal thickening in the paranasal sinuses. Mastoid air cells: Small right mastoid effusion. Bones: Hyperostosis frontalis interna. Soft tissues: Unremarkable. IMPRESSION: No acute intracranial findings.
--- NOTE | 2024-11-21 19:09 | CT_ITS ---
PROCEDURE INFORMATION: Exam: CTA Head Without And With Contrast, Venography Exam date and time: 11/21/2024 8:11 PM Age: 49 years old Clinical indication: Other: Headache, sinus pain continuous TECHNIQUE: Imaging protocol: Computed tomographic angiography of the head without and with contrast. Exam focused on the veins. 3D rendering (Not supervised by radiologist): MIP and/or 3D reconstructed images were created by the technologist. Radiation optimization: All CT scans at this facility use at least one of these dose optimization techniques: automated exposure control; mA and/or kV adjustment per patient size (includes targeted exams where dose is matched to clinical indication); or iterative reconstruction. Contrast material: ISOVUE; Contrast volume: 80 ml; Contrast route: INTRAVENOUS (IV); COMPARISON: CT HEAD/BRAIN WO CON 11/21/2024 8:04 PM FINDINGS: Superior sagittal sinus: Patent. Straight sinus: Patent. Internal cerebral and cortical veins: Patent. Transverse sinuses: Patent. Sigmoid sinuses: Patent. Internal jugular veins: Limited visualized internal jugular veins are patent. Veins: No dural venous sinus thrombosis. 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 Brain: No definite mass, mass effect, or midline shift. Cerebral ventricles: No ventriculomegaly. Soft tissues: Unremarkable. IMPRESSION: No dural venous sinus thrombosis.
--- NOTE | 2024-11-21 19:14 | HMH.EDGENADL ---
Discharge Plan Disposition Patient Disposition: Home, Self-Care Condition: Good Prescriptions Prescriptions: No Action omeprazole 20 mg capsule,delayed release(DR/EC) 20 mg PO DAILY methylprednisolone 4 mg tablets,dose pack 4 mg PO PER PKG DIR Qty: 21 0RF paroxetine HCl 30 mg tablet 30 mg PO DAILY hydrochlorothiazide 12.5 mg Capsule 12.5 mg PO DAILY Mounjaro 15 mg/0.5 mL Pen Injector 15 mg SQ WEEKLY Referrals Follow up/Referrals: Cindy Patel MD [Staff Physician, Neurology] - See instructions Activity Restrictions/Add. Instructions Additional Instructions/Restrictions: Increase fluids and rest. CT scans here were normal. Please follow-up with your PCP for further migraine management and care. I have sent you with a referral to neurology if your headaches return, you will need to call them to schedule an appointment. If you have a severe headache you are unable to control at home please return to the emergency department. Clinical Impressions Clinical Impression: Migraine Instructions Patient Instructions: DI for Migraine Print Language Print Language: Setswana Discharge ED Provider: Yadira Ojeda General Adult HPI <Chantel Osborne (ED), CLASSIFIED ADVERTISING SUPERVISOR - Last Filed: 11/21/24 21:33> General Chief complaint: Headache Stated complaint: headache Time Seen by Provider: 11/21/24 18:54 Mode of Arrival: Ambulatory Source of Information: Patient and Spouse Description of Symptoms (Recalled from ER Triage Doc. by RN): yanet presents to the ED for a headache that has been reoccuring since 10/26. Patient states its ususally all over her head but recently its been more around her forehead. 07/30 is what the patient currently rates it and she has taken pain medication with no relief. her PCP recently prescribed her a nuscle relaxer which eased her headache but by the end of the day it had returned. History of Present Illness HPI narrative: 49-year-old female presents to the ED today with complaint of having a headache since 10/26/2024. She states she has gone to her PCP several times, she has had a massage she has tried a new pillow she has tried Sudafed, Tylenol, ibuprofen, sinus medications. She has used a Isabel pot she has done 7 days of Levaquin. She has tried heat and lidocaine patches and muscle rubs. She did take a muscle relaxer last night. Patient says that she is also doing her blood work a week ago. Her PCP recently changed her from Paxil to Prozac and she started taking the Prozac this past Monday. She had a headache prior to that. She says it feels like a pressure and an ache. She says she is light sensitive but not sound sensitive she has no nausea or vomiting. She says she thought it was a sinus infection as they gave her Levaquin. Patient takes metoprolol, HCTZ, Prozac and Mounjaro. She has had no other change in her medication other than new Prozac. She says her mother had migraines. Patient says the pain has been worse when she bent over. She has become very concerned about this her primary care told her to come to the ER because she needed imaging. She has no chest pain or shortness of breath. No abdominal pain. No other pain or problems Related Data Home Medications ?Medication ?Instructions ?Recorded ?Confirmed omeprazole 20 mg capsule,delayed 20 mg PO DAILY gerd 08/10/20 02/08/24 release hydrochlorothiazide 12.5 mg capsule 12.5 mg PO DAILY Fluid 06/21/22 02/08/24 paroxetine HCl 30 mg tablet 30 mg PO DAILY Depression 06/21/22 02/08/24 tirzepatide 15 mg/0.5 mL 15 mg SQ WEEKLY DM 06/21/22 02/08/24 subcutaneous pen injector (Mounjaro) Previous Rx's ?Medication ?Instructions ?Recorded methylprednisolone 4 mg tablets in 4 mg PO PER PKG DIR Pain, swelling 02/08/24 a dose pack #21 tabs Allergies Allergy/AdvReac Type Severity Reaction Status Date / Time No Known Allergies Allergy Verified 02/08/24 11:09 [facility] <Chantel Osborne (ED), CLASSIFIED ADVERTISING SUPERVISOR - Last Filed: 11/21/24 21:33> [facility] Disclaimer: The information contained in this section may have been updated after the patient was seen, as this information can be updated by other users. Medical History History of depression History of hypertension History of gastroesophageal reflux (GERD) History of diabetes mellitus Surgical History History of foot surgery History of tubal ligation History of History of laparoscopic cholecystectomy History of rectal surgery Family History Other No significant family history Social History Smoking Status: Never smoker alcohol intake: never current occupational status: employed Travel in the last 8 weeks?: None household members: spouse and children housing: house Have you lived/traveled outside US in past 30 days?: No Contact w/someone who lives/traveled outside US past 30 days?: No Exposure to someone with infectious disease in past 14 days?: No Do you have a fever (greater than 100.4 F or 38 C)?: No Have you tested positive for COVID-19?: No Exposed to someone with COVID-19 in past 14 days?: No Do you have a sore throat?: No Do you have a cough?: No Do you have any weakness?: No Do you have any diarrhea?: No Are you experiencing any unusual bleeding?: No Do you have any muscle aches/pain?: No Do you have any abdominal pain?: No Are you experiencing loss of taste or smell?: No Other Medical History Have you received the Flu Vaccine for this season: Yes Have you received the Pneumonia Vaccine: No <Chantel Osborne (ED), CLASSIFIED ADVERTISING SUPERVISOR - Last Filed: 11/21/24 21:33> ROS Obtained: Yes Systems reviewed as appropriate & no additional complaints except as documented Constitutional Constitutional: Reports as per HPI Physical Exam <Chantel Osborne (ED), CLASSIFIED ADVERTISING SUPERVISOR - Last Filed: 11/21/24 21:33> General General appearance: alert and in no apparent distress Head Head exam: atraumatic, normocephalic and normal inspection Eye Eye exam: Present PERRL and EOMI ENT ENT exam: Present normal oropharynx and mucous membranes moist Neck Neck exam: Present normal inspection, full ROM and trachea midline Respiratory Respiratory exam: Present normal lung sounds bilaterally Cardiovascular Cardiovascular exam: Present regular rate, normal rhythm, normal heart sounds, +S1 and +S2 Abdominal Exam Abdominal exam: Present soft and normal bowel sounds Extremities Exam Extremities exam: Present normal inspection, full ROM and normal capillary refill Neurological Exam Neurological exam: Present alert, oriented X3 and normal gait Skin Skin exam: Present warm, dry and intact Medical Decision Making <Chantel Osborne (ED), CLASSIFIED ADVERTISING SUPERVISOR - Last Filed: 11/21/24 21:33> Medical Records Screening: Per USPSTF and CDC recommendations, given the prevalence of disease in our region, it is our hospital?s policy to screen for HIV and viral Hepatitis for all patients aged 18 and over and those with ongoing risk factors. Bladimir Inquiry Pt receiving controlled substance: No Bladimir was queried for this patient: No Vital Signs: 11/21/24 18:48 11/21/24 19:00 11/21/24 19:31 Temperature 98.2 F Temperature Source Oral Pulse Rate 83 70 Pulse Rate [Right Radial] 74 Respiratory Rate 20 Blood Pressure 151/105 H 135/85 Blood Pressure [Right Arm] 143/100 H Blood Pressure Mean [Right Arm] 114 Blood Pressure Source [Right Arm] Automatic Cuff Blood Pressure Position Blood Pressure Position [Right Arm] Sitting 02 Sat by Pulse Oximetry 100 100 99 Oxygen Delivery Method Room Air 11/21/24 20:00 11/21/24 20:30 11/21/24 21:00 Temperature Temperature Source Pulse Rate 77 85 85 Pulse Rate [Right Radial] Respiratory Rate Blood Pressure 131/77 129/84 119/87 Blood Pressure [Right Arm] Blood Pressure Mean [Right Arm] Blood Pressure Source [Right Arm] Blood Pressure Position Blood Pressure Position [Right Arm] 02 Sat by Pulse Oximetry 98 97 96 Oxygen Delivery Method 11/21/24 21:30 11/21/24 22:00 11/21/24 22:36 Temperature 98.9 F Temperature Source Pulse Rate 77 85 91 H Pulse Rate [Right Radial] Respiratory Rate 16 Blood Pressure 134/90 122/86 127/92 H Blood Pressure [Right Arm] Blood Pressure Mean [Right Arm] Blood Pressure Source [Right Arm] Blood Pressure Position Sitting Blood Pressure Position [Right Arm] 02 Sat by Pulse Oximetry 99 93 L Oxygen Delivery Method Room Air Lab Data Lab Results 11/21/24 19:20: WBC 9.6, RBC 5.09, Hgb 14.1, Hct 41.6, MCV 81.7, MCH 27.7, MCHC 33.9, RDW 13.3, Plt Count 267, MPV 9.4, Neut % (Auto) 42.2, Lymph % (Auto) 47.2, [place] % (Auto) 7.0, Eos % (Auto) 2.7, Baso % (Auto) 0.7, Neut # (Auto) 4.1, Lymph # (Auto) 4.6 H, [place] # (Auto) 0.7, Eos # (Auto) 0.3, Baso # (Auto) 0.1, ESR 17, Sodium 139, Potassium 4.1, Chloride 105, Carbon Dioxide 25, Anion Gap 13.1, BUN 10, Creatinine 0.70, Estimated Creat Clear 120, Estimated GFR 89, Est GFR ( Amer) 107, Glucose 91, Calcium 9.4, Magnesium 2.0, Total Bilirubin 0.5, AST 28, ALT 15, Alkaline Phosphatase 73, C-Reactive Protein 3.4, Total Protein 7.2, Albumin 4.3, Globulin 2.9, Albumin/Globulin Ratio 1.5, Lipase 104, Serum HCG, Qual Negative 11/21/24 19:54: Urine Color Yellow, Urine Appearance Clear, Urine pH 5.5, Ur Specific Cameron 1.025, Urine Protein Negative, Urine Glucose (UA) Negative, Urine Ketones Negative, Urine Blood Negative, Urine Nitrate Negative, Urine Bilirubin Negative, Urine Urobilinogen 0.2, Ur Leukocyte Esterase Negative, Urine RBC None, Urine WBC Occasional, Ur Squamous Epith Cells 3-5, Urine Bacteria 1+ 11/21/24 19:20 11/21/24 19:20 Orders (Tests/Meds): ED MEDICATIONS Discontinued Medications Generic Name Dose Route Start Last Admin Trade Name Timq PRN Reason Stop Dose Admin Acetaminophen 1,000 mg 11/21/24 19:10 11/21/24 19:26 Acetaminophen 1,000mg/100ml Vial IV 11/21/24 19:11 1,000 mg ONCE ONE Administration Dexamethasone Sodium Phosphate 8 mg 11/21/24 19:10 11/21/24 19:28 Dexamethasone 4mg/Ml 1ml Vial IV 11/21/24 19:11 8 mg ONCE ONE Administration Diphenhydramine HCl 50 mg 11/21/24 19:10 11/21/24 19:32 Diphenhydramine 50mg/Ml Vial IV 11/21/24 19:11 50 mg ONCE ONE Administration Droperidol 2.5 mg 11/21/24 21:10 11/21/24 21:28 Droperidol 5mg/2ml Vial IV 11/21/24 21:11 2.5 mg ONCE ONE Administration Sodium Chloride 1,000 mls @ 999 mls/hr 11/21/24 19:10 11/21/24 20:30 Sod Chlor 0.9% 1000ml Bag IV 11/21/24 20:10 Infused .Q1H1M ONE Infusion Iopamidol 75 ml 11/21/24 20:10 11/21/24 20:11 Iopamidol-370 (76%);100ml Bottle IV 11/21/24 20:11 75 ml ONCE ONE Administration Prochlorperazine Edisylate 5 mg 11/21/24 19:10 11/21/24 19:34 Prochlorperazine 10mg/2ml Vial IV 11/21/24 19:11 5 mg ONCE ONE Administration Sodium Chloride 50 ml 11/21/24 20:10 11/21/24 20:11 0.9 % Sodium Chloride 50 Ml Vial IV 11/21/24 20:11 50 ml ONCE ONE Administration Sodium Chloride 10 ml 11/21/24 20:10 11/21/24 20:11 Sodium Chloride 0.9% 10ml Syr (Rad Only) IV 11/21/24 20:11 10 ml ONCE ONE Administration ORDERS Category Date Time Status CT Venogram head Stat Cat Scan 11/21/24 19:[address] head/brain wo con Stat Cat Scan 11/21/24 19:09 Completed Beta HCG, Qual [HCG Qualitative, Serum] Stat Lab 11/21/24 19:20 Completed CBC [Complete Blood Count Auto Diff] Stat Lab 11/21/24 19:20 Completed CRP [C-Reactive Protein] Stat Lab 11/21/24 19:20 Completed Comprehensive Metabolic Panel Stat Lab 11/21/24 19:20 Completed Erythrocyte Sedimentation Rate Stat Lab 11/21/24 19:20 Completed Lipase Stat Lab 11/21/24 19:20 Completed Magnesium Stat Lab 11/21/24 19:20 Completed Urinalysis and Microscopic Stat Lab 11/21/24 19:54 Completed Medical Decision Narrative: patient is a 49-year-old female presenting to the emergency department for evaluation of headache. Patient is hemodynamically stable and nontoxic-appearing upon arrival, afebrile. Differential diagnosis includes migraine, sinus, among others. Workup will be conducted with hematologic labs, specific imaging. Initial inventions include crystalloid bolus, analgesics. Initial workup reviewed by or hematologic labs are remarkable for white blood cell count of 9.6, normal liver and kidney labs, essentially normal urine. We are still awaiting CT scan results. Patient is resting comfortably in bed asleep. Patient still has some pain with movement of her eyes. CT scans have resulted and are nonactionable at this time. Nothing acute found. Will give droperidol to see if this helps patient with continued symptoms. Discussed with Dr. Ojeda that if patient's migraine does not improve with the droperidol that we can talk to her about admission for intractable migraine since she has had a migraine for a month and had no relief. First we will see if the droperidol helps the migraine then we will discuss with patient. <Yadira Ojeda, DO - Last Filed: 11/21/24 23:20> Medical Records Medical records reviewed: Yes I reviewed the patient's medical records. Vital Signs: 11/21/24 18:48 11/21/24 19:00 11/21/24 19:31 Temperature 98.2 F Temperature Source Oral Pulse Rate 83 70 Pulse Rate [Right Radial] 74 Respiratory Rate 20 Blood Pressure 151/105 H 135/85 Blood Pressure [Right Arm] 143/100 H Blood Pressure Mean [Right Arm] 114 Blood Pressure Source [Right Arm] Automatic Cuff Blood Pressure Position Blood Pressure Position [Right Arm] Sitting 02 Sat by Pulse Oximetry 100 100 99 Oxygen Delivery Method Room Air 11/21/24 20:00 11/21/24 20:30 11/21/24 21:00 Temperature Temperature Source Pulse Rate 77 85 85 Pulse Rate [Right Radial] Respiratory Rate Blood Pressure 131/77 129/84 119/87 Blood Pressure [Right Arm] Blood Pressure Mean [Right Arm] Blood Pressure Source [Right Arm] Blood Pressure Position Blood Pressure Position [Right Arm] 02 Sat by Pulse Oximetry 98 97 96 Oxygen Delivery Method 11/21/24 21:30 11/21/24 22:00 11/21/24 22:36 Temperature 98.9 F Temperature Source Pulse Rate 77 85 91 H Pulse Rate [Right Radial] Respiratory Rate 16 Blood Pressure 134/90 122/86 127/92 H Blood Pressure [Right Arm] Blood Pressure Mean [Right Arm] Blood Pressure Source [Right Arm] Blood Pressure Position Sitting Blood Pressure Position [Right Arm] 02 Sat by Pulse Oximetry 99 93 L Oxygen Delivery Method Room Air Lab Data Lab results reviewed: Yes I reviewed the patient's lab results. Lab Results 11/21/24 19:20: WBC 9.6, RBC 5.09, Hgb 14.1, Hct 41.6, MCV 81.7, MCH 27.7, MCHC 33.9, RDW 13.3, Plt Count 267, MPV 9.4, Neut % (Auto) 42.2, Lymph % (Auto) 47.2, [place] % (Auto) 7.0, Eos % (Auto) 2.7, Baso % (Auto) 0.7, Neut # (Auto) 4.1, Lymph # (Auto) 4.6 H, [place] # (Auto) 0.7, Eos # (Auto) 0.3, Baso # (Auto) 0.1, ESR 17, Sodium 139, Potassium 4.1, Chloride 105, Carbon Dioxide 25, Anion Gap 13.1, BUN 10, Creatinine 0.70, Estimated Creat Clear 120, Estimated GFR 89, Est GFR ( Amer) 107, Glucose 91, Calcium 9.4, Magnesium 2.0, Total Bilirubin 0.5, AST 28, ALT 15, Alkaline Phosphatase 73, C-Reactive Protein 3.4, Total Protein 7.2, Albumin 4.3, Globulin 2.9, Albumin/Globulin Ratio 1.5, Lipase 104, Serum HCG, Qual Negative 11/21/24 19:54: Urine Color Yellow, Urine Appearance Clear, Urine pH 5.5, Ur Specific [place] 1.025, Urine Protein Negative, Urine Glucose (UA) Negative, Urine Ketones Negative, Urine Blood Negative, Urine Nitrate Negative, Urine Bilirubin Negative, Urine Urobilinogen 0.2, Ur Leukocyte Esterase Negative, Urine RBC None, Urine WBC Occasional, Ur Squamous Epith Cells 3-5, Urine Bacteria 1+ Orders (Tests/Meds): ED MEDICATIONS Discontinued Medications Generic Name Dose Route Start Last Admin Trade Name Freq PRN Reason Stop Dose Admin Acetaminophen 1,000 mg 11/21/24 19:10 11/21/24 19:26 Acetaminophen 1,000mg/100ml Vial IV 11/21/24 19:11 1,000 mg ONCE ONE Administration Dexamethasone Sodium Phosphate 8 mg 11/21/24 19:10 11/21/24 19:28 Dexamethasone 4mg/Ml 1ml Vial IV 11/21/24 19:11 8 mg ONCE ONE Administration Diphenhydramine HCl 50 mg 11/21/24 19:10 11/21/24 19:32 Diphenhydramine 50mg/Ml Vial IV 11/21/24 19:11 50 mg ONCE ONE Administration Droperidol 2.5 mg 11/21/24 21:10 11/21/24 21:28 Droperidol 5mg/2ml Vial IV 11/21/24 21:11 2.5 mg ONCE ONE Administration Sodium Chloride 1,000 mls @ 999 mls/hr 11/21/24 19:10 11/21/24 20:30 Sod Chlor 0.9% 1000ml Bag IV 11/21/24 20:10 Infused .Q1H1M ONE Infusion Iopamidol 75 ml 11/21/24 20:10 11/21/24 20:11 Iopamidol-370 (76%);100ml Bottle IV 11/21/24 20:11 75 ml ONCE ONE Administration Prochlorperazine Edisylate 5 mg 11/21/24 19:10 11/21/24 19:34 Prochlorperazine 10mg/2ml Vial IV 11/21/24 19:11 5 mg ONCE ONE Administration Sodium Chloride 50 ml 11/21/24 20:10 11/21/24 20:11 0.9 % Sodium Chloride 50 Ml Vial IV 11/21/24 20:11 50 ml ONCE ONE Administration Sodium Chloride 10 ml 11/21/24 20:10 11/21/24 20:11 Sodium Chloride 0.9% 10ml Syr (Rad Only) IV 11/21/24 20:11 10 ml ONCE ONE Administration ORDERS Category Date Time Status CT Venogram head Stat Cat Scan 11/21/24 19:[address] head/brain wo con Stat Cat Scan 11/21/24 19:09 Completed Beta HCG, Qual [HCG Qualitative, Serum] Stat Lab 11/21/24 19:20 Completed CBC [Complete Blood Count Auto Diff] Stat Lab 11/21/24 19:20 Completed CRP [C-Reactive Protein] Stat Lab 11/21/24 19:20 Completed Comprehensive Metabolic Panel Stat Lab 11/21/24 19:20 Completed Erythrocyte Sedimentation Rate Stat Lab 11/21/24 19:20 Completed Lipase Stat Lab 11/21/24 19:20 Completed Magnesium Stat Lab 11/21/24 19:20 Completed Urinalysis and Microscopic Stat Lab 11/21/24 19:54 Completed Medical Decision Narrative: patient is a 49-year-old female presenting to the emergency department for evaluation of headache. Patient is hemodynamically stable and nontoxic-appearing upon arrival, afebrile. Differential diagnosis includes migraine, venous sinus thrombosis, intracranial pathology, tension headache, amongst others. Workup will be conducted with hematologic labs, specific imaging. Initial inventions include crystalloid bolus, analgesics. Labs were reviewed and interpreted by myself: CBC showed no leukocytosis, hemoglobin was stable. CMP was unremarkable. Lipase was normal. UA showed no evidence of infection. CT scans were reviewed and interpreted by myself: CT head and CTV showed no acute intracranial process or sign of venous sinus thrombosis. Patient was treated symptomatically with a migraine cocktail initially on arrival with fluids, Compazine, Tylenol, Benadryl and dexamethasone. On reassessment, patient continued to have a headache therefore patient was given droperidol. Patient's EKG was reviewed and interpreted by myself and showed normal sinus rhythm without acute ST or T wave changes concerning for ischemia. On further reassessment, patient stated that her headache was completely resolved therefore at this time I felt the patient was stable and appropriate for discharge home. Patient was sent with a referral to neurology. Critical Care <Chantel Osborne (ED), CLASSIFIED ADVERTISING SUPERVISOR - Last Filed: 11/21/24 21:33> Critical Care Time Critical Care Time: No
[2024-11-21] MEDS: 0.9 % SODIUM CHLORIDE 1000ML 1,000 ML 999 ML IV (19:24)
[2024-11-21] MEDS: ACETAMINOPHEN 1,000MG/100ML VIAL 1000 MG IV (19:26)
[2024-11-21] MEDS: DEXAMETHASONE 4MG/ML 1ML VIAL 8 MG IV (19:28)
[2024-11-21] MEDS: PROCHLORPERAZINE 10MG/2ML VIAL 5 MG IV (19:34)
[2024-11-21 19:35] LABS: Hematocrit 41.6 % (37.0-47.0); Hemoglobin 14.1 g/dL (12.2-16.2); Immature Granulocytes % 0.2 %; Mean Corpuscular HGB Conc 33.9 g/dL (31.8-35.4); Mean Corpuscular Hemoglobin 27.7 pg (27.0-31.2); Mean Corpuscular Volume 81.7 fl (81-99); Nucleated Red Blood Cells % 0 %; Platelet Count 267 K/mm3 (142-424); Red Blood Count 5.09 M/mm3 (4.20-5.40); Red Cell Distribution Width-SD 39.3 fL; White Blood Count 9.6 K/mm3 (4.8-10.8)
[2024-11-21 19:40] LABS: Alanine Aminotransferase 15 U/L (12-78); Albumin Level 4.3 g/dl (3.5-5.0); Albumin/Globulin Ratio 1.5 (1.1-1.8); Alkaline Phosphatase 73 U/L (38-126); Anion Gap 13.1 mEq/L (5-15); Aspartate Amino Transferase 28 U/L (14-36); Bilirubin,Total 0.5 mg/dl (0.2-1.3); Blood Urea Nitrogen 10 mg/dl (7-17); Calcium 9.4 mg/dl (8.4-10.2); Carbon Dioxide 25 mmol/L (22.0-30.0); Chloride 105 mmol/L (98-107); Creatinine Clearance Estimated 120 mL/min (50-200); Creatinine,Serum 0.70 mg/dl (0.52-1.04); Estimated Glomerular Filt Rate 89 ml/min (>60); GFR (African American) 107 ML/MIN (>60); Globulin 2.9 g/dL (1.3-3.2); Glucose 91 mg/dl (74-100); Lipase 104 U/L (23-300); Magnesium 2.0 mg/dl (1.6-2.3); Potassium 4.1 mmoL/L (3.5-5.1); Sodium 139 mmol/L (136-145); Total Protein,Serum 7.2 g/dl (6.3-8.2)
[2024-11-21 20:01] LABS: HCG Qualitative, Serum Negative (Negative)
[2024-11-21 20:02] LABS: Microscopic, Urine URINE MICROSCOPIC (MICROSCOPIC)
[2024-11-21 20:05] LABS: Bilirubin,Urine Negative (Negative); Color,Urine YELLOW (Yellow); Glucose,Urine (UA) Negative (Negative); Ketones,Urine Negative (Negative); Leukocyte Esterase,Urine Negative (Negative); PH,Urine 5.5 (5.0-8.5); Protein,Urine Negative (Negative); Specific Gravity, Urine 1.025 (1.005-1.030); Urobilinogen,Urine 0.2 EU/dl (0.2)
[2024-11-21] MEDS: IOPAMIDOL-370 (76%);100ML BOTTLE 75 ML IV (20:11)
[2024-11-21] MEDS: SODIUM CHLORIDE 0.9% 10ML SYR (RAD ONLY) 10 ML IV (20:11)
[2024-11-21] MEDS: 0.9 % SODIUM CHLORIDE 50 ML VIAL IV (20:11)
[2024-11-21 20:29] LABS: Bacteria,Urine 1+ /lpf; WBC,Urine Occasional #/hpf (0-3)
[2024-11-21 20:49] LABS: C-Reactive Protein 3.4 mg/L (0-4)
[2024-11-21] MEDS: droPERidol 5MG/2ML VIAL 2.5 MG IV (21:28)
--- NOTE | 2024-11-21 21:29 | ECG_ITS ---
APPROVED REPORT Exam: Resting ECG HR:70 bpm ECG Measurements Heart Rate 70 AXES [place] 216 P 76 QRSd 90 QRS 73 QT 380 T 54 QTc 401 Conclusion SINUS RHYTHM WITH FIRST DEGREE AV BLOCK ABNORMAL ECG UNCONFIRMED REPORT Electronically signed by : JAM JARQUIN, 11/21/2024 23:04:29
== END 2024-11-21 22:42 | disposition home or self-care (01) ==
PROVIDERS: Nurse Practitioner; Emergency Provider Student in an Organized Health Care Education/Training Program; PCP Family Medicine Geriatric Medicine
DX: G43.909 Migraine, unspecified, not intractable, without status migrainosus (principal)
CPT/HCPCS: 70450; 70496; 80053; 81001; 83690; 83735; 84703; 85025; 85651; 86140; 93005; 96361; 96374; 96375; 99285; J0131; J0780; J1100; J1200; J1790; J7030; Q9967